=== PATIENT | female | born 1960 | race Caucasian/White ===

== ENCOUNTER 2017-10-05 17:54 | Emergency (ER) | payer MEDICAID, MEDICARE ==
[2017-10-05] MEDS ORDERED: Bupivacaine 0.5% 10 ML VIAL ONE (18:18)
[2017-10-05] MEDS ORDERED: Ketorolac Tromethamine 30 MG/ML VIAL ONE (18:19)
[2017-10-05] MEDS ORDERED: Lidocaine 1% w/Epinephrine 1:100K 20 ML VIAL ONE (18:19)
[2017-10-05] MEDS ORDERED: HYDROcodone/Acetaminophen 5/325 mg Tablet ONE (20:10)
== END 2017-10-05 20:29 | disposition home or self-care (01) ==
LOC: ERS 17:54
DX: S42.201A Unspecified fracture of upper end of right humerus, initial encounter for closed fracture (principal); E78.5 Hyperlipidemia, unspecified; F31.9 Bipolar disorder, unspecified; F41.9 Anxiety disorder, unspecified; F17.210 Nicotine dependence, cigarettes, uncomplicated; Z79.899 Other long term (current) drug therapy; W01.198A Fall on same level from slipping, tripping and stumbling with subsequent striking against other object, initial encounter
CPT/HCPCS: 64450; 96374; J1885; J2001; J3490